=== PATIENT | female | born 1985 | race Caucasian/White ===

== ENCOUNTER → 2018-09-14 | Day surgery (SDC) | payer OTHER ==
[~2018-09-14] MED LIST: Lidocaine 1% 20 ML MDV ONE
[2018-09-14 12:46] VITALS: BP 159/78
--- NOTE | 2018-09-18 10:01 | OR ---
DATE OF OPERATION: 09/15/2018 PREOPERATIVE DIAGNOSIS: VENOUS INSUFFICIENCY WITH PAINFUL VARICOSITIES. POSTOPERATIVE DIAGNOSIS: VENOUS INSUFFICIENCY WITH PAINFUL VARICOSITIES. SURGEON: Steven Lion MD PROCEDURE: FERCHO, LEFT GSV. ANESTHESIA: Local with tumescent. COMPLICATIONS: None. SPECIMEN: None. FINDINGS: Successful FERCHO, left GSV. 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 She elects to proceed with endovenous ablation. DESCRIPTION OF PROCEDURE: The patient was brought to the operating room site, and the insufficient saphenous vein mapped via ultrasound and diagrammed on the overlying skin along with the access site down on the lower end of the calf. Entire limb was prepped and draped in sterile fashion. The patient was placed in reverse Trendelenburg position. Local anesthesia of 1% lidocaine was instilled over the access site. The vein was accessed using ultrasound guidance and the Seldinger technique. The guidewire was introduced through the needle. Needle was removed. A small incision was made with #11 blade scalpel, and a 6- [place] sheath was placed over the guidewire into the saphenous vein without complication and held in place via skin tension. Guidewire was removed and the sheath was flushed. Radiofrequency probe was then placed into the vein through the sheath and positioned approximately 2 cm distal to the saphenofemoral junction under ultrasound guidance. After probe position verified via ultrasound, tumescent anesthesia was infiltrated under ultrasound guidance into the perivenous compartment along the length of the vein achieving a halo affect. The patient was then placed back in Trendelenburg position to exsanguinate the superficial system. Radiofrequency probe position again confirmed via ultrasound, and under direct external compression along the length of the heating element, radiofrequency energy was applied. The vein was ablated, heating a 7 cm segment, indexing the catheter forward 6.5 cm until treatment length complete. Device temperature was maintained at 120 degrees Celsius with an initial power level of 40 yoder, dropping to below 20 for each treatment. The total radiofrequency treatment time was 3 minutes and 20 seconds with 10 radiofrequency cycles used, a total 500 mL of tumescent anesthesia was used. Repeat ultrasound of the vein confirmed successful treatment. Catheter and the sheath were withdrawn, and hemostasis was achieved with direct pressure. The patient's leg was wrapped from foot to groin with Blue wrap, and she was stable in the recovery room. MJP/MODL /[id number]
== END ==
LOC: CC.SDS 10:26
PROVIDERS: ATTEND Family Medicine
DX: I87.2 Venous insufficiency (chronic) (peripheral) (principal); I83.812 Varicose veins of left lower extremity with pain
CPT/HCPCS: 36478; A4216

== ENCOUNTER → 2018-09-19 | Day surgery (SDC) | payer OTHER ==
[~2018-09-19] MED LIST changes: +ALPRAZolam 0.5 MG Tab.DIS (ODT) PO ONE
[2018-09-19] MEDS: ALPRAZolam ODT 0.25 MG Tab PO ONE ×2 (10:45→12:46)
[2018-09-19 13:20] VITALS: BP 150/79
--- NOTE | 2018-09-20 08:27 | OR ---
DATE OF OPERATION: 09/19/2018 PREOPERATIVE DIAGNOSIS: VENOUS INSUFFICIENCY WITH PAINFUL VARICOSITIES. POSTOPERATIVE DIAGNOSIS: VENOUS INSUFFICIENCY WITH PAINFUL VARICOSITIES. SURGEON: Steven Lion MD PROCEDURE: FERCHO, RIGHT GSV. ANESTHESIA: Local with tumescent. The patient did have 1 mg of Xanax for conscious sedation with continuous nurse monitoring. COMPLICATIONS: None. SPECIMEN: None. FINDINGS: Successful FERCHO, right GSV. INDICATIONS: The patient has documented saphenofemoral insufficiency with painful varicosity. She elected to proceed with endovenous ablation. DESCRIPTION OF PROCEDURE: The patient was brought to the operating room suite and the insufficient saphenous vein on the right lower extremity was mapped via ultrasound and diagrammed on the overlying skin along with the access site. The entire limb was prepped and draped in sterile fashion. The patient was placed in reverse Trendelenburg position. Local anesthesia was instilled at the access site at around the calf. The vein was accessed using ultrasound guidance and Seldinger technique with a needle introduced into the vein. Guidewire was introduced through the needle. Needle was removed. A small incision was made with 11 blade scalpel and then a 6-[place] sheath was placed over the wire into the vein without any complication. The guidewire was removed. The sheath was flushed. Radiofrequency probe was then placed into the vein through the sheath and positioned approximately 1.8 cm distal to the saphenofemoral junction via ultrasound guidance. After probe position verified via ultrasound, tumescent anesthesia was infiltrated under ultrasound guidance precisely into the perivenous compartment along the length of the vein to be treated from the entry site to the saphenofemoral junction achieving a halo affect. The patient was placed in Trendelenburg position to exsanguinate the superficial venous system. Once again, radiofrequency probe position was confirmed via ultrasound, and with direct external compression along the length of the heating element, radiofrequency energy was applied. The vein was segmentally ablated heating a 7 cm segment and indexing the catheter forward 6.5 cm until treatment length complete. Device temperature was maintained at a 120 degrees Celsius with an initial power level of 40 yoder dropping to below 20 for each treatment. Total treatment time was 3 minutes and 20 seconds with 10 radiofrequency cycles. A total of 550 mL of tumescent was used. The catheter and sheath were removed without problem and the access site achieved hemostasis with direct pressure. Followup ultrasound confirmed successful treatment. A butterfly dressing was then placed over the access site. The patient's leg was wrapped from the level of the foot to the groin without any complication. She was stable in the recovery room. ANTONELLA /[id number]
== END ==
LOC: CC.SDS 10:22
PROVIDERS: ATTEND Family Medicine
DX: I87.2 Venous insufficiency (chronic) (peripheral) (principal); I83.811 Varicose veins of right lower extremity with pain
CPT/HCPCS: 36478; A9270; A4216

== ENCOUNTER 2019-06-05 21:03 | Emergency (ER) | payer OTHER ==
[2019-06-05 21:42] VITALS: BP 136/68
[2019-06-05 21:58] LABS: CHLORIDE,CL 102 mEq/L (98-106); SODIUM,NA 139 mEq/L (136-145)
--- NOTE | 2019-06-05 22:12 | EDM.PDOC ---
ED HPI GENERAL MEDICAL PROBLEM - General Chief Complaint: Cardiovascular Problem Stated Complaint: high BP Time Seen by Provider: 06/05/19 21:30 Source of Information: Reports: Patient History Limitations: Reports: No Limitations - History of Present Illness INITIAL COMMENTS - FREE TEXT/NARRATIVE: Jackie is a 33 yo female who presents to the clinic with concerns of chest pain. States she was sitting at home earlier this evening and feeling flushed, she then took her BP and it was 150/100. Admits after checking her blood pressure she felt a sharp pain go from her chest down to her left side. States the pain lasted about a minute. She does check her blood pressure regularly and normally runs 120's/80's. She denies any chest pain. States immediately after getting the pain she got up and walked around, which relieved the pain. Location: Reports: Chest - Related Data Allergies Allergy/AdvReac Type Severity Reaction Status Date / Time bee venom protein (honey bee) Allergy Anaphylactic Verified 06/05/19 21:35 Shock latex Allergy Itching Verified 06/05/19 21:35 Home Meds: Home Meds Nebivolol [Bystolic] 10 mg PO DAILY 09/14/18 [History] hydroCHLOROthiazide [Hydrochlorothiazide] 25 mg PO DAILY 09/14/18 [History] Past Medical History - Past Health History Medical/Surgical History: Denies Medical/Surgical History Cardiovascular History: Reports: High Cholesterol, Hypertension Musculoskeletal History: Reports: Fibromyalgia Social & Family History - Family History Family Medical History: Noncontributory - Tobacco Use Smoking Status *Q: Current Every Day Smoker Years of Tobacco use: 20 Packs/Tins Daily: 0.5 - Caffeine Use Caffeine Use: Reports: Coffee, Soda - Recreational Drug Use Recreational Drug Use: No ED ROS GENERAL - Review of Systems Review Of Systems: See Below Constitutional: Reports: No Symptoms HEENT: Reports: No Symptoms Respiratory: Denies: Shortness of Breath Cardiovascular: Reports: Chest Pain, Blood Pressure Problem. Denies: Edema, Lightheadedness, Palpitations GI/Abdominal: Reports: No Symptoms : Reports: No Symptoms Musculoskeletal: Reports: No Symptoms ED EXAM, GENERAL - Physical Exam Exam: See Below Exam Limited By: No Limitations General Appearance: Alert, No Apparent Distress Ears: Normal External Exam, Normal Canal, Hearing Grossly Normal, Normal TMs Nose: Normal Inspection, Normal Mucosa, No Blood Throat/Mouth: Normal Inspection, Normal Lips, Normal Teeth, Normal Oropharynx, Normal Voice, No Airway Compromise Head: Atraumatic, Normocephalic Neck: Normal Inspection, Supple, Non-Tender Respiratory/Chest: No Respiratory Distress, Lungs Clear, Normal Breath Sounds, No Accessory Muscle Use, Chest Non-Tender Cardiovascular: Normal Peripheral Pulses, Regular Rate, Rhythm, No Edema, No Murmur GI/Abdominal: Normal Bowel Sounds, Soft, Non-Tender, No Organomegaly, No Distention Extremities: Normal Inspection, No Pedal Edema Neurological: Alert, Oriented, Normal Cognition, No Motor/Sensory Deficits Psychiatric: Normal Affect, Normal Mood Skin Exam: Warm, Dry, Intact, Normal Color EKG INTERPRETATION EKG Date: 06/05/19 Rhythm: NSR Catano: RAD-Right Catano Deviation Course - Vital Signs Last Recorded V/S: Last Vital Signs Temp 97.5 F 06/05/19 21:04 Pulse 91 06/05/19 21:20 Resp 20 06/05/19 21:20 BP 136/68 06/05/19 21:20 Pulse Ox 98 06/05/19 21:20 - Orders/Labs/Meds Orders: Active Orders 24 hr Category Date Time Status EKG Documentation Completion [RC] STAT Care 06/05/19 21:25 Active Chest 2V [CR] Stat Exams 06/05/19 21:25 Taken Labs: Laboratory Tests 06/05/19 06/05/19 06/05/19 Range/Units 21:25 21:25 21:25 WBC 14.4 H (5.0-10.0) 10^3/uL RBC 4.38 (4.00-5.50) 10^6/uL Hgb 13.2 (12.0-16.0) g/dL Hct 39.5 (37.0-47.0) % MCV 90.2 (82.0-94.0) fL MCH 30.1 (27.0-32.0) pg MCHC 33.4 (33.0-38.0) g/dL RDW Coeff of Karlo 13.6 (11.0-15.0) % Plt Count 276 (150-400) 10^3/uL Neut % (Auto) 64.7 (35-85) % Lymph % (Auto) 28.5 (10-55) % [place] % (Auto) 5.8 (0-16) % Eos % (Auto) 0.8 (0-5) % Baso % (Auto) 0.2 (0-3) % Neut # (Auto) 9.32 H (1.80-7.00) 10^3/uL Lymph # (Auto) 4.10 (1.00-4.80) 10^3/uL [place] # (Auto) 0.84 H (0.00-0.80) 10^3/uL Eos # (Auto) 0.11 (0.00-0.45) 10^3/uL Baso # (Auto) 0.03 10^3/uL PT 9.6 L (9.7-12.3) SEC INR 0.93 (0.92-1.18) APTT 26.5 (23.2-32.3) SEC Sodium 139 (136-145) mEq/L Potassium 3.2 L (3.5-5.0) mEq/L Chloride 102 (98-106) mEq/L Carbon Dioxide 29 (21-32) mmol/L BUN 8 (7-18) mg/dL Creatinine 0.8 (0.6-1.0) mg/dL Est Cr Clr Drug Dosing 88.32 mL/min Estimated GFR (MDRD) > 60 (>=60) mL/min Glucose 167 H D (75-99) mg/dL Calcium 9.1 (8.4-10.1) mg/dL Lactate Dehydrogenase 130 (100-190) U/L Creatine Kinase 115 (21-215) U/L Troponin I < 0.017 (0.00-0.06) ng/mL Departure - Departure Time of Disposition: 22:15 Disposition: Home, Self-Care 01 Clinical Impression: Atypical chest pain, Hypokalemia Instructions: Nonspecific Chest Pain, [id number] Referrals: Aba Oshea PA-C [Primary Care Provider] - Additional Instructions: 1) Schedule appointment in clinic for Tuesday for repeat blood work 2) Encourage increasing potassium intake, banana daily, etc... 3) If any further chest discomfort or concerns at all, return to ED - Problem List & Annotations (1) Atypical chest pain SNOMED Code(s): 303791441 Code(s): R07.89 - OTHER CHEST PAIN Status: Acute Current Visit: Yes (2) Hypokalemia SNOMED Code(s): 38747927 Code(s): E87.6 - HYPOKALEMIA Status: Acute Current Visit: Yes - My Orders Last 24 Hours: My Active Orders 06/05/19 21:25 EKG Documentation Completion [RC] STAT Chest 2V [CR] Stat - Assessment/Plan Last 24 Hours: My Active Orders 06/05/19 21:25 EKG Documentation Completion [RC] STAT Chest 2V [CR] Stat Plan: EKG, Chest X-ray and labs showed no acute cardiopulmonary disease. Potassium slightly low, recommend increasing potassium intake, such as, banana a day. Will have follow up in clinic in 1 week. Discussed cardiolite, repeat labs, etc... Will discharge home at this time. Blood pressure was normotensive and patient is asymptomatic.
== END 2019-06-05 22:24 | disposition home or self-care (01) ==
LOC: CC.ED 21:03
DX: R07.89 Other chest pain (principal); E87.6 Hypokalemia; I10 Essential (primary) hypertension; F17.210 Nicotine dependence, cigarettes, uncomplicated; Z91.030 Bee allergy status; Z91.040 Latex allergy status; Z79.899 Other long term (current) drug therapy
CPT/HCPCS: 36415; 71046; 80048; 82550; 83615; 84484; 85025; 85610; 85730; 93005; 99284-25